=== PATIENT | male | born 1960 | race Caucasian/White ===

== ENCOUNTER → 2016-12-21 | Outpatient (CLI) | payer OTHER, MEDICARE ==
[~2016-12-21] MED LIST: ACET-1311 PO; CIPR1TAB11 PO; IBUP-1050 PO; LIDO5DIS10 TOP; LISI20TA3 PO; MULT-506 PO; ZNTT/150 PO
[2016-12-25 17:33] LABS: IGA SERUM 210 mg/dL (81-463); TIS TRANS IGA 1 U/mL (<4)
== END | disposition home or self-care (01) ==
LOC: C.LAB1850 11:50
PROVIDERS: ATTEND Registered Nurse
DX: R14.0 Abdominal distension (gaseous) (principal)

== ENCOUNTER → 2017-01-02 | Outpatient (CLI) | payer OTHER, MEDICARE ==
--- NOTE | 2017-01-02 10:53 | DIAGNOSTIC IMAGING REPORT ---
ABDOMINAL ULTRASOUND, RIGHT UPPER QUADRANT HISTORY: Pain. Nausea. K21.9 Acid reflux [id number] Abdominal [id number] Flatulence. COMPARISON: None. FINDINGS: Pancreas: The pancreas demonstrates a normal echotexture. Liver: Fatty infiltration 3.7 cm slightly complex cyst within the right hepatic lobe Gallbladder: No gallbladder wall thickening. No gallstones. CBD: 5 mm Right kidney: No hydronephrosis. IMPRESSION: 1. Fatty infiltration of liver. 2. 3.7 cm slightly complex hepatic cyst within the right hepatic lobe 3. Otherwise negative study Electronically signed by: Robbie Moctezuma M.D. 01/02/2017 10:52 AM Dictated Date/Time: 01/02/2017 10:49 AM
== END | disposition home or self-care (01) ==
LOC: C.ULTR 10:11
PROVIDERS: ATTEND Registered Nurse
DX: K21.9 Gastro-esophageal reflux disease without esophagitis (principal); R14.0 Abdominal distension (gaseous); R10.9 Unspecified abdominal pain; K76.0 Fatty (change of) liver, not elsewhere classified; K76.89 Other specified diseases of liver

== ENCOUNTER → 2017-01-05 | Outpatient (CLI) | payer OTHER, MEDICARE ==
[~2017-01-05] MED LIST changes: +OPTIRAY 320 IV PRN
--- NOTE | 2017-01-05 09:47 | DIAGNOSTIC IMAGING REPORT ---
Hepatic cyst LIVER (ABDOMEN) COMBO CLINICAL HISTORY: K76.89 Liver cyst hepatic cysts. Abnormal ultrasound. TECHNIQUE: Multiphase CT evaluation of the abdomen and liver COMPARISON STUDY: Abdominal ultrasound dated 01/02/2017 FINDINGS: 3.5 x 3.2 cm peripherally enhancing cystic lesion medial right hepatic lobe. Internal septation showing potential subtle nodularity. Remainder the liver is generally uniform mild fatty infiltration present. Diagnostic considerations include complex cyst, abscess, hydatid nodule, versus cystic neoplasm. [address] follow-up is suggested. Remainder the upper abdomen is unremarkable. Kidneys enhance uniformly. Gallbladder is negative for distention. Pancreas is unremarkable. Adrenal glands are unremarkable. There is no significant upper abdominal adenopathy. IMPRESSION: 1. 3.5 x 3.2 cm peripherally enhancing internally septated nodule medial right hepatic lobe. 2. Diagnostic considerations include hydatiform nodule/ cyst, complex cyst, abscess, versus potential necrotic neoplastic change. 3. Close CT follow-up is recommended at 3 months. Electronically signed by: Robbie Moctezuma M.D. 01/05/2017 9:45 AM Dictated Date/Time: 01/05/2017 9:35 AM
== END | disposition home or self-care (01) ==
LOC: C.CTS 09:18
PROVIDERS: ATTEND Registered Nurse
DX: K76.89 Other specified diseases of liver (principal)

== ENCOUNTER → 2017-01-08 | Outpatient (CLI) | payer OTHER, MEDICARE ==
[~2017-01-08] MED LIST changes: -OPTIRAY 320 IV PRN
[2017-01-09 08:15] LABS: AFP TUMOR MARKER SERUM 2.3 NG/ML (<6.1)
== END | disposition home or self-care (01) ==
LOC: C.LAB1850 08:47
PROVIDERS: ATTEND Registered Nurse
DX: K76.89 Other specified diseases of liver (principal)

== ENCOUNTER → 2017-01-29 | Day surgery (SDC) | payer OTHER, MEDICARE ==
[2017-01-15 10:58] VITALS: Ht 180.3 cm; Wt 115.9 kg
[~2017-01-29] VITALS: Ht 180.3 cm; Wt 115.9 kg
[~2017-01-29] MED LIST changes: +LIDOCAINE HCL 2% 2 ML VIAL (20MG/ML) ONE; +MIDAZOLAM HCL 1 MG/ML 2ML VIAL ONE; +ONDANSETRON INJ 2 MG/ML 2 ML VIAL ONE; +PROPOFOL IV EMULSION 10 MG/ML 20 ML VIAL IV ONE; +SODIUM CHLORIDE 0.9% 500ML 500 ML IV ONE
[2017-01-29 08:32] VITALS: TEMP 36.9
--- NOTE | 2017-01-29 08:40 | Endo History and Physical ---
History & Physical Date of Service: Jan 29, 2017. Chief Complaint: Cramping, Reflux Referring Physician: Hussein Yen History of Present Illness 56 yo CM who presents for EGD secondary to GERD. Past Medical History Arthritis, Hypertension Past Surgical History Hx Cardiac Surgery: No Hx Internal Defibrillator: No Hx Pacemaker: No Hx Abdominal Surgery: No Hx of Implantable Prosthesis: No Hx Post-Op Nausea and Vomiting: No Hx Cancer Surgery: No Hx Thoracic Surgery: No Hx Orthopedic: Yes (RT FOOT SURGERY X3 WITH HARDWARE) Hx Urinary Tract Surgery: No Family History Colon CA Social History Smoking Status: Former Smoker Hx Substance Use: No Hx Alcohol Use: Yes (OCCASIONAL) Allergies Coded Allergies: Penicillins (Verified Adverse Reaction, Mild, IRREGULAR HEARTBEAT, 01/15/17) Current Medications Reported Home Medications Medications Dose Route/Sig Max Daily Dose Days Date Category Zantac (Ranitidine HCl) 150 Mg Tab 150 Mg PO BID 01/15/17 Reported Tylenol (Acetaminophen) 325 Mg Tab 325-650 Mg PO Q4 PRN 10/04/15 Reported Advil (Ibuprofen) 200 Mg Tab 200-600 Mg PO Q4H PRN 10/04/15 Reported Multivitamin (Multivitamins) Tab 1 Tab PO QAM 10/04/15 Reported Lidoderm Patch 5% Patch (Lidocaine) 1 Patch Tdsy 1 Patch TOP DAILY 10/04/15 Reported Prinivil (Lisinopril) 20 Mg Tab 20 Mg PO QAM 01/02/11 Reported Vital Signs Weight (Kilograms): 115.91 Height (Feet): 5 Height (Inches): 11 Date Time Temp Pulse Resp B/P Pulse Ox O2 Delivery O2 Flow Rate FiO2 01/29/17 08:32 36.9 55 16 157/85 97 Room Air Physical Exam General Appearance: WD/WN, no apparent distress Respiratory/Chest: Auscultation: breath sounds normal Cardiovascular: Heart Auscultation: RRR Abdomen: Bowel Sounds: normal Inspection & Palpation: soft, non-distended, no tenderness, guarding & rebound Assessment and Plan Assessment: 56 yo CM who presents for EGD secondary to GERD. Plan: Proceed with EGD.
--- NOTE | 2017-01-29 09:30 | GI REPORT ---
Procedure Date: 01/29/2017 9:08 AM Procedure: Upper GI endoscopy Indications: Gastro-esophageal reflux disease Medicines: Monitored Anesthesia Care Complications: No immediate complications. Estimated Blood Loss: Estimated blood loss: none. Procedure: Pre-Anesthesia Assessment: - Prior to the procedure, a History and Physical was performed, and patient medications and allergies were reviewed. The patient's tolerance of previous anesthesia was also reviewed. The risks and benefits of the procedure and the sedation options and risks were discussed with the patient. All questions were answered, and informed consent was obtained. Prior Anticoagulants: The patient has taken no previous anticoagulant or antiplatelet agents. ASA Grade Assessment: II - A patient with mild systemic disease. After reviewing the risks and benefits, the patient was deemed in satisfactory condition to undergo the procedure. After obtaining informed consent, the endoscope was passed under direct vision. Throughout the procedure, the patient's blood pressure, pulse, and oxygen saturations were monitored continuously. The scope was introduced through the mouth, and advanced to the second part of duodenum. The upper GI endoscopy was accomplished without difficulty. The patient tolerated the procedure well. Findings: The esophagus was normal. Localized mild inflammation characterized by erythema was found in the gastric antrum. Biopsies were taken with a cold forceps for histology. The examined duodenum was normal. Impression: - Normal esophagus. - Gastritis. Biopsied. - Normal examined duodenum. Recommendation: - Resume previous diet. - Continue present medications. - Await pathology results. - Return to GI office as previously scheduled. Everardo Jacobs DO 01/29/2017 9:29:59 AM This report has been signed electronically. Note Initiated On: 01/29/2017 9:08 AM I attest to the content of the Intraoperative Record and orders documented therein, exceptions below
--- NOTE | 2017-01-29 09:32 | Discharge Instructions ---
Endoscopy Patient Instructions Date / Procedure(s) Performed Jan 29, 2017. EGD Allergy Information Coded Allergies: Penicillins (Verified Adverse Reaction, Mild, IRREGULAR HEARTBEAT, 01/15/17) Discharge Date / Findings Jan 29, 2017. Gastritis s/p biopsies Medication Instructions OK to resume all medications today as prescribed Reported Home Medications Medications Dose Route/Sig Max Daily Dose Days Date Category Zantac (Ranitidine HCl) 150 Mg Tab 150 Mg PO BID 01/15/17 Reported Tylenol (Acetaminophen) 325 Mg Tab 325-650 Mg PO Q4 PRN 10/04/15 Reported Advil (Ibuprofen) 200 Mg Tab 200-600 Mg PO Q4H PRN 10/04/15 Reported Multivitamin (Multivitamins) Tab 1 Tab PO QAM 10/04/15 Reported Lidoderm Patch 5% Patch (Lidocaine) 1 Patch Tdsy 1 Patch TOP DAILY 10/04/15 Reported Prinivil (Lisinopril) 20 Mg Tab 20 Mg PO QAM 01/02/11 Reported Provider Instructions Activity Restrictions - No exercising or heavy lifting for 24 hours. - Do not drink alcohol the day of the procedure. - Do not drive a car or operate machinery until the day after the procedure. - Do not make any important decisions or sign important papers in 24 hours after the procedure. Following Day: - Return to full activity which may include returning to work/school. Diet Start your diet with liquids and light foods (jello, soup, juice, toast). Then eat your usual diet if not nauseated. Treatment For Common After Affects For mild abdominal pain, bloating, or excessive gas: - Rest - Eat lightly - Lie on right side Follow-Up Information Follow-up with Hussein Yen as scheduled Anesthesia Information What You Should Know You have had a procedure that required some medicine to reduce anxiety and discomfort. This treatment is called moderate sedation. After receiving the treatment, you may be sleepy, but you will be able to breathe on your own. The effects of the treatment may last for several hours. Follow these instructions along with Activity/Diet recommendations noted above: * Do NOT do anything where dizziness or clumsiness would be dangerous. * Rest quietly at home today, then you can be up and about tomorrow. * Have a responsible person stay with you the rest of today. * You may have had an I.V. today. If so, you may take the dressing off later today. Recommendations Call your doctor if: * Trouble breathing * Continuous vomiting for more than 24 hours * Temperature above 101 degrees * Severe abdominal pain or bloating * Pain not relieved by pain medicine ordered * There is increased drainage or redness from any incision * A large amount of rectal bleeding greater than 2-3 tablespoons. (If you had a polyp/s removed or have hemorrhoids, a small amount of blood - from the rectum is to be expected.) * You have any unanswered questions or concerns. IN THE EVENT OF A SERIOUS EMERGENCY, GO TO THE NEAREST EMERGENCY ROOM Your discharge instructions were prepared by provider Everardo Jacobs. Patient Instructions Signature Page Kd Lockwood Patient (or Guardian) Signature/Date: I have read and understand the instructions given to me by my caregivers. Caregiver/RN/Doctor Signature/Date: The above-named patient and/or guardian has received patient instructions on this date. + Original Patient Signature Page (only) stays with chart. Please make copy for patient.
--- NOTE | 2017-01-29 09:42 | Anesthesiology Progress Note ---
Anesthesia Post Op Note Date & Time Jan 29, 2017 at 09:42 Vital Signs Pain Intensity: 0 Vital Signs Past 12 Hours Date Time Temp Pulse Resp B/P Pulse Ox O2 Delivery O2 Flow Rate FiO2 01/29/17 09:31 63 18 121/58 96 Room Air 01/29/17 08:32 36.9 55 16 157/85 97 Room Air Notes Mental Status: alert / awake / arousable, participated in evaluation Pt Amnestic to Procedure: Yes Nausea / Vomiting: adequately controlled Pain: adequately controlled Airway Patency, RR, SpO2: stable & adequate BP & HR: stable & adequate Hydration State: stable & adequate Anesthetic Complications: no major complications apparent
[2017-01-29 10:01] VITALS: BP 136/82; PULSE 52; O2SAT 98
--- NOTE | 2017-01-29 11:07 | Anesthesiology Progress Note ---
Anesthesia Progress Note Date of Service Jan 29, 2017. Progress Notes Pt was s/p EGD. Pt noted having a small chip on the medial aspect of his upper R front tooth. I spoke to the pt about it likely being caused from the bite block. I spoke with Dr. Jacobs about the incident. An event report was completed by the recovery nurse, a picture was taken of the tooth, and Hua Newton was contacted in regards to the matter. The pt was otherwise stable for discharge.
== END | disposition home or self-care (01) ==
LOC: C.GI 08:12
PROVIDERS: ATTEND Internal Medicine
DX: K29.70 Gastritis, unspecified, without bleeding (principal); K21.9 Gastro-esophageal reflux disease without esophagitis; M19.90 Unspecified osteoarthritis, unspecified site; I10 Essential (primary) hypertension; Z87.891 Personal history of nicotine dependence; Z88.0 Allergy status to penicillin; Z90.89 Acquired absence of other organs; E78.5 Hyperlipidemia, unspecified; G62.9 Polyneuropathy, unspecified; M54.5 Low back pain; Z86.19 Personal history of other infectious and parasitic diseases

== ENCOUNTER → 2017-02-07 | Day surgery (SDC) | payer OTHER, MEDICARE ==
[2017-01-15 11:06] VITALS: Ht 180.3 cm; Wt 115.9 kg
[~2017-02-07] VITALS: Ht 180.3 cm; Wt 115.9 kg
[~2017-02-07] MED LIST changes: +BUPIVACAINE 0.25% 2.5MG/ML PF 10 ML VIAL INFIL ONE; +IOPAMIDOL INJ 61% 15 ML VIAL ONE; +LIDOCAINE HCL 1% MPF 5 ML VIAL ONE; -LIDOCAINE HCL 2% 2 ML VIAL (20MG/ML) ONE; -MIDAZOLAM HCL 1 MG/ML 2ML VIAL ONE; -ONDANSETRON INJ 2 MG/ML 2 ML VIAL ONE; -PROPOFOL IV EMULSION 10 MG/ML 20 ML VIAL IV ONE; -SODIUM CHLORIDE 0.9% 500ML 500 ML IV ONE
--- NOTE | 2017-02-07 13:42 | History & Physical Bridge - SC ---
H&P Re-Evaluation Bridge Note: I have examined the patient, reviewed the History & Physical and in the interval since the performance of the History & Physical I have noted the following changes of clinical significance: No changes noted
--- NOTE | 2017-02-07 14:09 | Discharge Instructions ---
Discharge Instructions Date of Service Feb 07, 2017. Visit Reason for Visit: Sacroiliitis Discharge Discharge Diagnosis / Problem: Low back pain Discharge Goals Goal(s): Decrease discomfort, Improve function Activity Recommendations Activity Limitations: resume your previous activity Anesthesia . Post Anesthesia Instructions: If you have had General Anesthesia or IV Sedation: * Do not drive today. * Resume driving when surgeon permits. * Do not make important decisions or sign legal documents today. * Call surgeon for: 1. Temperature elevations greater than 101 degrees F. 2. Uncontrollable pain. 3. Excessive bleeding. 4. Persistent nausea and vomiting. 5. Medication intolerance (nausea, vomiting or rash). * For nausea and vomiting use only clear liquids such as: tea, soda, bouillon until nausea subsides, then gradually increase diet as tolerated. * If you have any concerns or questions, call your surgeon's office. If physician is unavailable and it is an emergency, call 911 or go to the nearest emergency room. . Diet Recommendations Recommended Home Diet: resume previous diet Procedures Procedures Performed: RIGHT SACROILIAC JOINT INJECTION Pending Studies Studies pending at discharge: no Medical Emergencies . Who to Call and When: Medical Emergencies: If at any time you feel your situation is an emergency, please call 911 immediately. . Non-Emergent Contact Non-Emergency issues call your: Specialist . . "Provider Documentation" section prepared by Johnny Jordan.
[2017-02-07 14:14] VITALS: BP 152/91; PULSE 57; TEMP 36.7; O2SAT 98
--- NOTE | 2017-02-07 15:48 | OPERATIVE REPORT ---
DATE OF OPERATION: 02/07/2017 PREOPERATIVE DIAGNOSIS: Right sacroiliitis. POSTOPERATIVE DIAGNOSIS: Same. PROCEDURE: Right sacroiliac joint injection under fluoroscopic guidance. INDICATIONS: The patient is a 56-year-old white male who presents today for an SI joint injection. He had problems with the back when he woke up postoperatively after repair of the ankle area, question was whether he was positioned in a certain position that irritated the SI joint. His examination is consistent with provocative maneuvers of SI pathology and he presents today for an injection to provide him with relief. PHYSICAL EXAMINATION: Pleasant male seated comfortably in no apparent distress. He has tenderness to palpation of the SI joint. It is worse with moving from a flexed to an extended position. He also has a positive Bridget maneuver on the right and positive sacral distraction and compression maneuvers. CONSENT: Verbal and written consent was obtained from the patient. Risks and benefits were reviewed. Risks include, but are not limited to abscess and allergic reaction. The patient wishes to proceed. DESCRIPTION OF PROCEDURE: The patient was taken back to the special procedures room of the [facility], where he was maintained in a prone position. Backside was cleansed with Betadine x3 and a dry sterile dressing was applied. Fluoroscope was used to identify the right SI joint and the overlying skin was anesthetized with 2.5 mL of lidocaine 1% with a 25-gauge 1.5-inch needle. A 25-gauge 3.5-inch spinal needle was then directed under fluoroscopic guidance into the joint. He then underwent injection of 0.25 mL of Isovue 300 contrast, which demonstrated intraarticular uptake. He then underwent injection after negative aspiration of 40 mg of Depo-Medrol and 1.5 mL of bupivacaine 0.25%. Injection was well tolerated. DISPOSITION: 1. The patient is taken out into the discharge recovery area, where he will be discharged home once discharge criteria have been met. 2. Follow up in the [facility] office in 2-4 weeks. I attest to the content of the Intraoperative Record and any orders documented therein. Any exceptio ns are noted below.
== END | disposition home or self-care (01) ==
LOC: X.SURG 12:27
PROVIDERS: ATTEND Physical Medicine & Rehabilitation
DX: M46.1 Sacroiliitis, not elsewhere classified (principal)

== ENCOUNTER → 2017-02-14 | Outpatient (CLI) | payer OTHER, MEDICARE ==
[~2017-02-14] MED LIST changes: -ACET-1311 PO; -BUPIVACAINE 0.25% 2.5MG/ML PF 10 ML VIAL INFIL ONE; +GADOXETATE DISODIUM (NON-WT BASED PROCEDURE) IV PRN; -IOPAMIDOL INJ 61% 15 ML VIAL ONE; -LIDOCAINE HCL 1% MPF 5 ML VIAL ONE
--- NOTE | 2017-02-14 17:57 | DIAGNOSTIC IMAGING REPORT ---
ORBIT RADIOGRAPHS 3 VIEWS HISTORY: pre-MRI screening. COMPARISON: Orbit radiographs April 08, 2009. FINDINGS: There are no radiopaque foreign bodies identified within the orbits. IMPRESSION: No radiopaque foreign bodies identified within the orbits. Electronically signed by: Ryan Bello M.D. 02/14/2017 5:56 PM Dictated Date/Time: 02/14/2017 5:55 PM
--- NOTE | 2017-02-15 10:50 | DIAGNOSTIC IMAGING REPORT ---
MRI OF THE ABDOMEN WITH AND WITHOUT CONTRAST LIVER PROTOCOL CLINICAL HISTORY: Liver cyst. Abdominal pain. COMPARISON STUDY: Right upper quadrant ultrasound January 02, [address] of the abdomen January 05, 2017. TECHNIQUE: Utilizing a 1.5 Lalitha magnet and dedicated coil, multiplanar, multiecho imaging of the abdomen was performed pre and postcontrast administration. Injection of 10 cc of Eovist IV was uneventful. Post contrast imaging was performed utilizing dynamic enhancement with 20 minute delayed phase images. FINDINGS: The liver morphology is normal. Note is made of a complex cystic right hepatic lobe lesion that measures 3.6 x 2.9 x 3.2 cm. This is similar in size to exam of January 05, 2017. This contains several thickened septations. The wall of this lesion is slightly irregular. There is minimal enhancement of the wall and the internal septations. No additional hepatic lesions are present. There is no biliary ductal dilatation. The spleen, adrenal glands, kidneys and pancreas are normal. There is no abdominal lymphadenopathy or ascites. Visualized skeletal structures are unremarkable. Note is made of fatty infiltration of the liver. IMPRESSION: 1. No significant change in the complex 3.6 cm cystic right hepatic lobe lesion since CT of January 05, 2017. Differential considerations include a complex cyst, hydatid cyst and biliary cystadenoma. An abscess is considered less likely given stability. This lesion is likely benign but remains indeterminate and an MRI in 6 months is recommended to ensure stability. 2. Fatty infiltration of the liver. Electronically signed by: Ryan Bello M.D. 02/15/2017 10:48 AM Dictated Date/Time: 02/14/2017 7:26 PM
== END | disposition home or self-care (01) ==
LOC: C.RAD 17:21
PROVIDERS: ATTEND Registered Nurse
DX: K76.89 Other specified diseases of liver (principal); K76.0 Fatty (change of) liver, not elsewhere classified

== ENCOUNTER → 2017-02-22 | Outpatient (CLI) | payer OTHER, MEDICARE ==
[~2017-02-22] MED LIST changes: -GADOXETATE DISODIUM (NON-WT BASED PROCEDURE) IV PRN
[2017-03-02 13:15] LABS: CRYPTOSPORIDIUM AG TC 37213 NOT DETECTED (NOT DETECTED); ISOSPORA+CYCLOSPORA NOT DETECTED; O&P GIARDIA AG NOT DETECTED (NOT DETECTED); O&P SOURCE OTHER
== END ==
LOC: C.LAB1850 09:07
PROVIDERS: ATTEND Registered Nurse
DX: R10.9 Unspecified abdominal pain (principal); R14.0 Abdominal distension (gaseous)

== ENCOUNTER → 2017-07-25 | Outpatient (CLI) | payer OTHER, MEDICARE | END | disposition home or self-care (01) | LOC: C.RDSM 08:38 | PROVIDERS: ATTEND Orthopaedic Surgery | DX: M25.521 Pain in right elbow (principal) ==

== ENCOUNTER → 2017-07-27 | Outpatient (CLI) | payer OTHER, MEDICARE ==
--- NOTE | 2017-07-27 11:03 | DIAGNOSTIC IMAGING REPORT ---
RIGHT ELBOW MRI HISTORY: RIGHT ELBOW PAIN M25.521 Right TECHNIQUE: Multiplanar multisequence MRI of the right elbow was performed without the use of intravenous contrast. COMPARISON STUDY: Right elbow 07/25/2017. FINDINGS: There is mild edema both within and surrounding the distal biceps tendon. There is also mild thickening of the distal biceps tendon. This is consistent with a tendinopathy/low-grade partial tear. No evidence for full-thickness tear of the biceps tendon. No fracture or dislocation within the elbow. Normal marrow signal intensity seen throughout the visualized osseous structures. The triceps tendon is intact. No elbow effusion. The ulnar nerve is within normal limits. The radial and ulnar collateral ligaments are intact. The proximal common flexor and common extensor tendon are within normal limits. IMPRESSION: Mild edema both within and surrounding the distal biceps tendon consistent with a tendinopathy/low-grade partial tear. Electronically signed by: Yony Bañuelos M.D. 07/27/2017 11:02 AM Dictated Date/Time: 07/27/2017 10:57 AM
== END | disposition home or self-care (01) ==
LOC: C.MRI 09:51
PROVIDERS: ATTEND Orthopaedic Surgery
DX: M25.521 Pain in right elbow (principal)

== ENCOUNTER → 2017-08-20 | Outpatient (CLI) | payer OTHER, MEDICARE ==
[~2017-08-20] MED LIST changes: +GADOXETATE DISODIUM (NON-WT BASED PROCEDURE) IV PRN
--- NOTE | 2017-08-20 10:14 | DIAGNOSTIC IMAGING REPORT ---
MRI OF THE ABDOMEN COMBO CLINICAL HISTORY: Follow-up cystic liver lesion. COMPARISON STUDY: Abdominal MRI dated 02/14/2017. Abdominal CT dated 01/05/2017. TECHNIQUE: MRI of the abdomen is performed transverse T1 and T2-weighted sequences in the axial and coronal planes. Contrast enhanced sequences were acquired following the IV administration of 10 cc of view of Eovist. MRCP images were acquired. Subtraction imaging was utilized. FINDINGS: Lower chest: No pleural effusion is identified. The heart is normal in size. Liver: The liver is normal in size, contour, and signal intensity. Again seen is a predominantly cystic lesion within the inferior right lobe of the liver. This has increased in size from 02/14/2017, now measuring 3.9 x 3.5 x 4.5 cm (previously measured 3.6 x 2.9 x 3.2 cm). This contains thin internal septations. There is an increasingly prominent focus of enhancing nodular soft tissue along the inferior margin. This is best seen on coronal postcontrast image #47 and measures 1.9 cm. This lesion also demonstrates a thin rind/round of peripheral enhancement. No restricted diffusion is seen within this lesion. No additional hepatic lesions are seen. No intrahepatic biliary ductal dilatation is seen. The hepatic veins and portal veins are patent. Gallbladder: The gallbladder is normal in appearance. No gallstones are seen. The common bile duct is normal in caliber measuring up to 4 mm. There is no evidence of choledocholithiasis. Spleen: Normal in size and signal intensity. Pancreas: Pancreas is normal as visualized. The pancreatic duct is normal in appearance. Adrenal glands: Unremarkable. Kidneys: The kidneys are normal in size and without hydronephrosis. The kidneys enhance and excrete symmetrically. Abdominal aorta: Normal in course and caliber. Bowel: Visualized portions of the small bowel and colon show no evidence of obstruction. Peritoneum: There is no abdominal ascites. Lymphadenopathy: None. Skeletal structures: Visualized skeletal structures times are normal marrow signal intensity. IMPRESSION: 1. There has been an increase in size of the complex cystic lesion in the right hepatic lobe as detailed above when compared to 02/14/2017. This demonstrates an enhancing nodular component, and although pathologically indeterminant the top consideration is a biliary cystadenoma/cystadenocarcinoma. Differential considerations include hydatid disease or much less likely abscess. Based on the increase in size surgical consultation is advised. 2. No additional hepatic lesion is seen. Electronically signed by: Anthony Lemus M.D. 08/20/2017 10:12 AM Dictated Date/Time: 08/20/2017 9:54 AM
== END | disposition home or self-care (01) ==
LOC: C.MRI 08:27
PROVIDERS: ATTEND Registered Nurse
DX: K76.89 Other specified diseases of liver (principal)

== ENCOUNTER → 2017-08-21 | Outpatient (CLI) | payer OTHER, MEDICARE ==
[~2017-08-21] MED LIST changes: -GADOXETATE DISODIUM (NON-WT BASED PROCEDURE) IV PRN
[2017-08-21 09:37] LABS: BASO % 0.6 %; BASO ABS # 0.04 K/uL (0-0.2); COMPLETE YES; HEMATOCRIT 45.2 % (42-52); IG% 0.3 %; LYMPH % 29.2 %; LYMPH ABS # 1.96 K/uL (1.2-3.4); MEAN CELL VOLUME 93.8 fL (80-100); MEAN CORPUSCULAR HEMOGLOBIN 32.8 pg (25-34); MEAN PLATELET VOLUME 10.4 fL (7.4-10.4); MONO % 11.5 %; NEUT % 55.4 %; PLATELET COUNT 257 K/uL (130-400); RED BLOOD COUNT 4.82 M/uL (4.7-6.1); WHITE BLOOD COUNT 6.72 K/uL (4.8-10.8)
[2017-08-21 09:51] LABS: ALT/SGPT 20 U/L (12-78); AST/SGOT 17 U/L (15-37); BLOOD UREA NITROGEN 11 mg/dl (7-18); CALCIUM 9.1 mg/dl (8.5-10.1); CARBON DIOXIDE 29 mmol/L (21-32); CHLORIDE 106 mmol/L (98-107); CREATININE 0.81 mg/dl (0.60-1.40); GLUCOSE 88 mg/dl (70-99); POTASSIUM 4.2 mmol/L (3.5-5.1); SODIUM 139 mmol/L (136-145)
[2017-08-21 09:54] LABS: ALB/GLOB RATIO 1.3 (0.9-2); ALKALINE PHOSPHATASE 49 U/L (45-117)
== END | disposition home or self-care (01) ==
LOC: C.LAB1850 07:47
PROVIDERS: ATTEND Physician Assistant
DX: K76.89 Other specified diseases of liver (principal)

== ENCOUNTER → 2017-09-26 | Outpatient (CLI) | payer OTHER, MEDICARE ==
[2017-09-26 10:11] LABS: BASO ABS # 0.06 K/uL (0-0.2); COMPLETE YES; EOS % 3.4 %; HEMATOCRIT 44.1 % (42-52); IG% 0.3 %; LYMPH % 27.4 %; LYMPH ABS # 1.61 K/uL (1.2-3.4); MEAN CELL VOLUME 92.3 fL (80-100); MEAN CORPUSCULAR HEMOGLOBIN 33.7 pg (25-34); MEAN CORPUSCULAR HGB CONC 36.5 g/dl (32-36); MEAN PLATELET VOLUME 9.8 fL (7.4-10.4); MONO % 9.5 %; NEUT % 58.4 %; PLATELET COUNT 248 K/uL (130-400); RED BLOOD COUNT 4.78 M/uL (4.7-6.1); WHITE BLOOD COUNT 5.88 K/uL (4.8-10.8)
[2017-09-26 10:22] LABS: PROTHROMBIN TIME (PATIENT) 10.2 SECONDS (9.0-12.0)
--- NOTE | 2017-09-26 10:24 | DIAGNOSTIC IMAGING REPORT ---
CHEST 2 VIEWS ROUTINE HISTORY: LIVER CYST COMPARISON: Chest 09/08/2016. FINDINGS: The lungs are clear. Cardiac silhouette is normal in size. No pleural effusions. No pneumothorax. IMPRESSION: No acute process. Electronically signed by: Yony Bañuelos M.D. 09/26/2017 10:23 AM Dictated Date/Time: 09/26/2017 10:21 AM
[2017-09-26 10:48] LABS: ALT/SGPT 25 U/L (12-78); AST/SGOT 15 U/L (15-37); BLOOD UREA NITROGEN 16 mg/dl (7-18); BUN/CREATININE RATIO 20.9 (10-20); CALCIUM 9.1 mg/dl (8.5-10.1); CARBON DIOXIDE 26 mmol/L (21-32); CHLORIDE 104 mmol/L (98-107); CREATININE 0.75 mg/dl (0.60-1.40); GLUCOSE 86 mg/dl (70-99); MAGNESIUM 2.2 mg/dl (1.8-2.4); POTASSIUM 4.3 mmol/L (3.5-5.1); SODIUM 138 mmol/L (136-145)
[2017-09-26 10:51] LABS: ALB/GLOB RATIO 1.3 (0.9-2); ALKALINE PHOSPHATASE 49 U/L (45-117); PHOSPHORUS 2.6 mg/dl (2.5-4.9)
== END | disposition home or self-care (01) ==
LOC: C.LAB 09:09
PROVIDERS: ATTEND Specialist
DX: K76.89 Other specified diseases of liver (principal)

== ENCOUNTER 2017-11-04 13:56 | Emergency (ER) | payer OTHER, MEDICARE ==
[~2017-11-04] VITALS: Ht 180.3 cm; Wt 100.3 kg
[2017-11-04 14:08] VITALS: TEMP 37.7; Ht 180.3 cm; Wt 100.3 kg
[2017-11-04] MEDS ORDERED: CIPROFLOXACIN 500 MG TAB PO STA (15:12)
[2017-11-04] MEDS ORDERED: CIPR-255 PO (15:16)
--- NOTE | 2017-11-04 15:17 | EMERGENCY ROOM VISIT NOTE ---
History Report prepared by Renetta: Reggie Salcido Under the Supervision of: Dr. Kendall Pedraza D.O. First contact with patient: 14:30 Chief Complaint: WOUND INFECTION Stated Complaint: FEAVER,DISCHARGE IN OPEN WOUND History of Present Illness The patient is a 57 year old male who presents to the Emergency Room with complaints of a fever that began today. He reports his fever was at 101 F and experienced sweats. The patient states he was seen on 10/16/2017, by Dr. Palta at [facility] for a confined cancerous liver cyst resection. The patient states he developed an infection 2 days ago and had a watery mass removed. His home health nurse removed the packing from his open wound today and after calling Dr. Plata's nurse, he was told to come the ED. Of note, the patient is on Bacterin. 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 Review of Systems See HPI for pertinent positives & negatives. A total of 10 systems reviewed and were otherwise negative. Social History Smoking Status: Never Smoker Current/Historical Medications Scheduled Ciprofloxacin Hcl (Cipro), 500 MG PO BID Ciprofloxacin Tab (Cipro), 1 TAB PO BID Allergies Coded Allergies: Penicillins (Verified Adverse Reaction, Mild, IRREGULAR HEARTBEAT, 02/07/17 ) Physical Exam Vital Signs Date Time Temp Pulse Resp B/P (MAP) Pulse Ox O2 Delivery O2 Flow Rate FiO2 11/04/17 15:30 78 20 131/79 97 11/04/17 14:08 37.7 100 20 130/84 99 Room Air Physical Exam CONSTITUTIONAL/VITAL SIGNS: Reviewed / noted above. GENERAL: Non-toxic in appearance. INTEGUMENTARY: Warm, dry, and [place]. HEAD: Normocephalic. EYES: without scleral icterus or trauma. ENT/OROPHARYNX: clear and moist. LYMPHADENOPATHY/NECK: Is supple without lymphadenopathy or meningismus. RESPIRATORY: Lungs clear and equal. CARDIOVASCULAR: Regular rate and rhythm. GI/ABDOMEN: Soft and nontender. No organomegaly or pulsatile mass. No rebound or guarding. Normal bowel sounds. Large abdominal wound in RUQ with minimal erythema along wound edge. Depth of the wound was visualized by removing packing in place. There was as mall amount fo purulent drainage on deepest portion of the packing and the medial aspect of the wound. Tissue was well perfused. The inferior medial portion of the deep wound reveals some brown to greyish tissue in the area of the purulent drainage. EXTREMITIES: Warm and well perfused. BACK: No CVA tenderness. NEUROLOGICAL: Intact without focal deficits. PSYCHIATRIC: normal affect. MUSCULOSKELETAL: Normally developed with good muscle tone. Medical Decision & Procedures Laboratory Results Laboratory results as stated above per my review. Medications Administered Medications (Trade) Dose Ordered Sig/Vadim Route Start Time Stop Time Status Last Admin Dose Admin Ciprofloxacin (Cipro Tab) 500 mg NOW STAT PO 11/04/17 15:12 11/04/17 15:13 DC 11/04/17 15:33 500 MG ED Course 1428: Previous medical records were reviewed. The patient was evaluated in room C1. A complete history and physical examination was performed. 1502: Discussed the patient's case with Dr. Plata. He suggested the patient be switched to Cipro and to continue with would dressing changes. The patient will be evaluated for further treatment and disposition. 1515: Cipro 500mg PO. 1530: On reevaluation, the patient is doing well. I discussed the results and findings with the patient. He verbalized agreement of the treatment plan. The patient was discharged home. Medical Decision Differential includes viral illness, influenza, streptococcal pharyngitis, meningitis, pneumonia, sinusitis, UTI, pyelonephritis, otitis media. This is a 57-year-old male who presents to the ED with a chief complaint of fever. The patient had partial liver resection on October 16. He had a subsequent infection that required a second surgery and debridement this past week. He has been placed on Bactrim. He is allergic to penicillin. The patient was discharged from [facility] and [facility] 2 days ago. He has no other complaints. Physical exam was relatively unremarkable with exception of the surgical wound. There was some evidence of a small amount of necrotic tissue in the depth of the wound inferiorly and medial where there also was noted some purulent drainage from the wound packing. The wound otherwise appears well perfused and pink. There was only a small amount of. Discharge. The wound was repacked. I spoke with Dr. Coppola, surgeon from [facility]. He recommended switching the patient to Cipro. The patient has plans to have a wound VAC placed on Sunday. The patient is felt to be stable for discharge. Medication Reconcilliation Current Medication List: was personally reviewed by me Blood Pressure Screening Patient's blood pressure: Normal blood pressure Consults Time Called: 1502 Consulting Physician: Dr. Plata - [facility] Returned Call: 1503 Discussed the patient's case with Dr. Coppola. He suggested the patient be switched to Cipro and to continue with would dressing changes. The patient will be evaluated for further treatment and disposition. Impression Primary Impression: Wound infection after surgery Scribe Attestation The scribe's documentation has been prepared under my direction and personally reviewed by me in its entirety. I confirm that the note above accurately reflects all work, treatment, procedures, and medical decision making performed by me. Departure Information Dispostion Home / Self-Care Prescriptions Ciprofloxacin Hcl (CIPRO) 500 Mg Tab 500 MG PO BID, #20 TAB Prov: Kendall Pedraza D.O. 11/04/17 Referrals No Doctor, Assigned (PCP) Patient Instructions My [facility] Additional Instructions Cipro as prescribed Discontinue Bactrim. Follow-up as scheduled. Return to the emergency department for worsening or new symptoms or any concerns. You have been examined and treated today on an emergency basis only. This is not a substitute for, or an effort to provide, complete comprehensive medical care. It is impossible to recognize and treat all injuries or illnesses in a single emergency department visit. It is therefore important that you follow up closely with your doctor. Call as soon as possible for an appointment.
[2017-11-04 15:30] VITALS: BP 131/79; PULSE 78; O2SAT 97
== END 2017-11-04 15:30 | disposition home or self-care (01) ==
LOC: C.EDB 13:57 → C.EDC 15:30
DX: T81.4XXA Infection following a procedure, initial encounter (principal); Y84.8 Other medical procedures as the cause of abnormal reaction of the patient, or of later complication, without mention of misadventure at the time of the procedure

== ENCOUNTER 2017-11-16 15:55 | Emergency (ER) | payer OTHER, MEDICARE ==
[~2017-11-16] VITALS: Ht 180.3 cm; Wt 99.7 kg
[~2017-11-16 15:55] MED LIST changes: +CIPR-255 PO; -IBUP-1050 PO; -LIDO5DIS10 TOP; -LISI20TA3 PO; -MULT-506 PO; -ZNTT/150 PO
[2017-11-16] MEDS ORDERED: SODIUM CHLORIDE 0.9% 1000ML 2,000 ML IV STA (16:00)
[2017-11-16] MEDS ORDERED: SODIUM CHLORIDE 0.9% 1000ML 1,000 ML IV STA ×2 (16:00→19:19)
[2017-11-16] MEDS ORDERED: ONDANSETRON INJ 2 MG/ML 2 ML VIAL IV STA ×2 (16:00→20:34)
[2017-11-16] MEDS ORDERED: FENTANYL CITRATE INJ 50 MCG/1 ML 2 ML VIAL IV STA ×3 (16:07→23:21)
[2017-11-16] MEDS ORDERED: ACETAMINOPHEN IV 100 ML IV STA (16:07)
--- NOTE | 2017-11-16 16:07 | EMERGENCY ROOM VISIT NOTE ---
History Report prepared by Renetta: Marina Thibodeaux Under the Supervision of: Dr. Titus Salinas M.D. First contact with patient: 15:57 Stated Complaint: NAUSEA, VOMITING, DIARRHEA History of Present Illness The patient is a 57 year old male who presents to the Emergency Room with complaints of persistent nausea, vomiting, and diarrhea that began last night. The patient states he has been experiencing lower back pain, shivering, chills, and intermittent fevers. He notes he has had a recent loss of appetite. The patient states that he had a partial liver resection on 10/16/2017, followed by an infection on 10/29/2015 which led to a second surgical procedure to clean the infected area. The patient was seen in the Emergency Department on 11/04/17 for a possible infection and a wound VAC was placed on 11/06. He states that after his surgeries, he has been having a nurse come and check his incision and discharge in his VAC, noting that 2 days ago the nurse noted a strong smell and today she suggested he come to the Emergency Department for further evaluation for a possible infection. Source of History: patient Onset: last night Position: other (global) Quality: other (nausea, vomiting, diarrhea) Timing: other (persistent) Associated Symptoms: + fevers (intermittent), + chills, + back pain Review of Systems See HPI for pertinent positives and negatives. A total of ten systems were reviewed and were otherwise negative. Past Medical & Surgical Medical Problems: (1) No Known Active Medical Problems Family History Patient reports no known family medical history. Social History Smoking Status: Never Smoker Smokeless Tobacco Use: No Alcohol Use: none Drug Use: none Current/Historical Medications Scheduled Lisinopril (Lisinopril), 20 MG PO QAM Scheduled PRN Oxycodone HCl (Oxycodone HCl), 5 MG PO Q6 PRN for Pain Allergies Coded Allergies: Penicillins (Verified Adverse Reaction, Mild, IRREGULAR HEARTBEAT, 11/16/17) Physical Exam Vital Signs Date Time Temp Pulse Resp B/P (MAP) Pulse Ox O2 Delivery O2 Flow Rate FiO2 11/16/17 22:00 77 20 105/70 96 Room Air 11/16/17 21:00 81 20 105/67 96 Room Air 11/16/17 20:00 85 20 106/61 96 Room Air 11/16/17 19:00 83 20 104/65 98 Room Air 11/16/17 17:56 90 20 111/65 96 Room Air 11/16/17 17:00 96 16 121/77 95 Room Air 11/16/17 16:15 112 11/16/17 16:15 37.0 122 20 107/86 96 Room Air Physical Exam GENERAL: Awake, alert, fatigued, uncomfortable and ill-appearing, in no distress HENT: Dry cracked mucous membranes. Normocephalic, atraumatic. Oropharynx unremarkable. EYES: Normal conjunctiva. Sclera non-icteric. NECK: Supple. No nuchal rigidity. FROM. No JVD. RESPIRATORY: Clear to auscultation. CARDIAC: Regular rate, normal rhythm. Extremities warm and well perfused. Pulses equal. ABDOMEN: Mild abdominal tenderness around right wound VAC sight, no erythema or warmth. Serosanguineous around wound and appears viscous. Soft, non-distended. No tenderness to palpation. No rebound or guarding. No masses. RECTAL: Deferred. MUSCULOSKELETAL: Chest examination reveals no tenderness. The back is symmetrical on inspection without obvious abnormality. There is no CVA tenderness to palpation. No joint edema. LOWER EXTREMITIES: Calves are equal size bilaterally and non-tender. No edema. No discoloration. NEURO: Normal sensorium. No sensory or motor deficits noted. SKIN: No rash or jaundice noted. Medical Decision & Procedures ER Provider Diagnostic Interpretation: Radiology results as stated below per my review and radiologist interpretation: CHEST ONE VIEW PORTABLE CLINICAL HISTORY: Abdominal pain and vomiting. COMPARISON STUDY: Chest radiograph September 26, 2017. FINDINGS: Lung volumes are normal. No pneumothorax or pleural effusion is noted. There is no evidence of pleural edema. No consolidation to suggest pneumonia. Cardiomediastinal silhouette is normal. IMPRESSION: No acute cardiopulmonary findings. Electronically signed by: Ryan Bello M.D. 11/16/2017 4:31 PM Dictated Date/Time: 11/16/2017 4:30 PM Laboratory Results 11/16/17 16:40 Red Blood Count 4.63, Mean Corpuscular Volume 91.6, Mean Corpuscular Hemoglobin 32.4, Mean Corpuscular Hemoglobin Concent 35.4, Mean Platelet Volume 9.3, Neutrophils (%) (Auto) 89.9, Lymphocytes (%) (Auto) 3.8, Monocytes (%) (Auto) 5.7, Eosinophils (%) (Auto) 0.0, Basophils (%) (Auto) 0.3, Neutrophils # (Auto) 9.41, Lymphocytes # (Auto) 0.40, Monocytes # (Auto) 0.60, Eosinophils # (Auto) 0.00, Basophils # (Auto) 0.03 11/16/17 16:40 Test 11/16/17 16:40 White Blood Count 10.47 K/uL (4.8-10.8) Red Blood Count 4.63 M/uL (4.7-6.1) Hemoglobin 15.0 g/dL (14.0-18.0) Hematocrit 42.4 % (42-52) Mean Corpuscular Volume 91.6 fL (80-100) Mean Corpuscular Hemoglobin 32.4 pg (25-34) Mean Corpuscular Hemoglobin Concent 35.4 g/dl (32-36) Platelet Count 318 K/uL (130-400) Mean Platelet Volume 9.3 fL (7.4-10.4) Neutrophils (%) (Auto) 89.9 % Lymphocytes (%) (Auto) 3.8 % Monocytes (%) (Auto) 5.7 % Eosinophils (%) (Auto) 0.0 % Basophils (%) (Auto) 0.3 % Neutrophils # (Auto) 9.41 K/uL (1.4-6.5) Lymphocytes # (Auto) 0.40 K/uL (1.2-3.4) Monocytes # (Auto) 0.60 K/uL (0.11-0.59) Eosinophils # (Auto) 0.00 K/uL (0-0.5) Basophils # (Auto) 0.03 K/uL (0-0.2) RDW Standard Deviation 44.2 fL (36.4-46.3) RDW Coefficient of Variation 13.2 % (11.5-14.5) Immature Granulocyte % (Auto) 0.3 % Immature Granulocyte # (Auto) 0.03 K/uL (0.00-0.02) Anion Gap 9.0 mmol/L (3-11) Est Creatinine Clear Calc Drug Dose 112.8 ml/min Estimated GFR () 111.6 Estimated GFR (Non- 96.3 BUN/Creatinine Ratio 18.8 (10-20) Lactic Acid Level 1.8 mmol/L (0.4-2.0) Calcium Level 9.2 mg/dl (8.5-10.1) Total Bilirubin 1.0 mg/dl (0.2-1) Direct Bilirubin 0.2 mg/dl (0-0.2) Aspartate Amino Transf (AST/SGOT) 20 U/L (15-37) Alanine Aminotransferase (ALT/SGPT) 23 U/L (12-78) Alkaline Phosphatase 72 U/L (45-117) Total Protein 7.8 gm/dl (6.4-8.2) Albumin 3.9 gm/dl (3.4-5.0) Lipase 151 U/L (73-393) Influenza Type A (RT-PCR) Neg for Influ A (NEG) Influenza Type A Antigen Neg for Influ A (NEG) Influenza Type B Antigen Neg for Influ B (NEG) Influenza Type B (RT-PCR) Neg for Influ B (NEG) Laboratory results reviewed by me Medications Administered Medications (Trade) Dose Ordered Sig/Vadim Route Start Time Stop Time Status Last Admin Dose Admin Sodium Chloride 2,000 ml @ 999 mls/hr Q2H1M STAT IV 11/16/17 16:00 11/16/17 18:00 DC 11/16/17 16:39 999 MLS/HR Ondansetron HCl (Zofran Inj) 4 mg NOW STAT IV 11/16/17 16:00 11/16/17 16:07 DC 11/16/17 16:39 4 MG Fentanyl Citrate (Fentanyl Inj) 50 mcg NOW STAT IV 11/16/17 16:07 11/16/17 16:09 DC 11/16/17 16:39 50 MCG Acetaminophen 100 ml @ 400 mls/hr NOW STAT IV 11/16/17 16:07 11/16/17 16:21 DC 11/16/17 16:39 400 MLS/HR Vancomycin HCl 2000 mg/Sodium Chloride 540 ml @ 200 mls/hr ONE STAT IV 11/16/17 18:18 11/16/17 20:59 DC 11/16/17 20:37 200 MLS/HR Cefepime HCl 2000 mg/Dextrose 112.5 ml @ 200 mls/hr NOW STAT IV 11/16/17 18:57 11/16/17 19:30 DC 11/16/17 20:22 200 MLS/HR Metronidazole (Flagyl / Nss) 500 mg NOW STAT IV 11/16/17 18:57 11/16/17 18:59 DC 11/16/17 19:21 500 MG Sodium Chloride 1,000 ml @ 125 mls/hr Q8H STAT IV 11/16/17 19:19 11/17/17 03:18 11/16/17 20:45 125 MLS/HR Fentanyl Citrate (Fentanyl Inj) 50 mcg NOW STAT IV 11/16/17 20:29 11/16/17 20:30 DC 11/16/17 20:36 50 MCG Ondansetron HCl (Zofran Inj) 4 mg NOW STAT IV 11/16/17 20:34 11/16/17 20:35 DC 11/16/17 20:36 4 MG ECG Indication: nausea, vomiting, other (diarrhea) Rate (beats per minute): 101 Rhythm: sinus tachycardia Findings: other (normal axis) ED Course 1559: The patient was evaluated in room C7. A complete history and physical exam was performed. 1845: I d/w Dr. Plata, patient's [facility] surgeon, who accepts patient for transfer to [facility]. Medical Decision I reviewed the patient's past medical history, medications, and the nursing notes as described above. The patient's presentation and history were concerning for abscess, cellulitis, sepsis, influenza, pneumonia, and UTI. The patient is a 57-year-old gentleman with a past medical history of a recent liver cyst resection on 10/16/2017, by Dr. Plata at [facility] with subsequent complications of infection status post debridement on the , recurrent infection and wound VAC placed on the with a course of Cipro which she completed 2 days ago and now presents emergency Department with generalized fatigue/malaise, feverishness and chills, nausea and diarrhea per history of present illness. On arrival the patient is uncomfortable, ill appearing but in no acute distress, afebrile, heart rate in the 120s, but pressure stable. On exam the patient has mild tenderness surrounding his surgical drain site however no erythema or discharge. The wound VAC discharge is serosanguineous but does appear thickened. Labs unremarkable including WBC and lactate within normal limits. CT scan demonstrates a peripheral right hepatic lobe complex collection measuring 8 x 6 x 2 cm that could be c/w abscess. Given the patient' s infectious symptoms abscess is high on differential. Case d/w Dr. Plata, patient's surgeon at [facility], who says the patient did have a post-op fluid collection that was believed to be a seroma, however given patient's infectious sx agrees that transfer for drainage is appropriate. Will treat with Vanc, Cefepime, Flagyl. Of note, patient reports h/o of PCN allergy that is "fast heart rate". Patient agreeable with plan. Awaiting bed assignment to proceed with ALS ground transfer to [facility]. Medication Reconcilliation Current Medication List: was personally reviewed by me Consults Time Called: 1829 Consulting Physician: Dr. Plata ([facility] surgery) Returned Call: [phone] Accepted for transfer. Impression Primary Impression: Hepatic abscess Critical Care I have personally spent greater than 90 minutes of critical care time in the direct management of this patient. This includes bedside care, interpretation of diagnostic studies, and testing, discussion with consultants, patient, and family members, and other required patient management activities. This 90 minutes is in excess of all separately billable procedures. Scribe Attestation The scribe's documentation has been prepared under my direction and personally reviewed by me in its entirety. I confirm that the note above accurately reflects all work, treatment, procedures, and medical decision making performed by me. Departure Information Referrals Hussein Yen M.D. (PCP) Forms HOME CARE DOCUMENTATION FORM, IMPORTANT VISIT INFORMATION, WORK / SCHOOL INSTRUCTIONS
[2017-11-16 16:15] VITALS: TEMP 37; Ht 180.3 cm; Wt 99.7 kg
[2017-11-16] MEDS ORDERED: OPTIRAY 320 IV PRN (16:15)
[2017-11-16] MEDS ORDERED: LSN20 PO (16:23)
[2017-11-16] MEDS ORDERED: RXC/5 PO (16:23)
--- NOTE | 2017-11-16 16:32 | DIAGNOSTIC IMAGING REPORT ---
CHEST ONE VIEW PORTABLE CLINICAL HISTORY: Abdominal pain and vomiting. COMPARISON STUDY: Chest radiograph September 26, 2017. FINDINGS: Lung volumes are normal. No pneumothorax or pleural effusion is noted. There is no evidence of pleural edema. No consolidation to suggest pneumonia. Cardiomediastinal silhouette is normal. IMPRESSION: No acute cardiopulmonary findings. Electronically signed by: Ryan Bello M.D. 11/16/2017 4:31 PM Dictated Date/Time: 11/16/2017 4:30 PM
[2017-11-16 17:02] LABS: BASO % 0.3 %; BASO ABS # 0.03 K/uL (0-0.2); HEMATOCRIT 42.4 % (42-52); IG# 0.03 K/uL (0.00-0.02); LYMPH % 3.8 %; MEAN CELL VOLUME 91.6 fL (80-100); MEAN CORPUSCULAR HEMOGLOBIN 32.4 pg (25-34); MEAN CORPUSCULAR HGB CONC 35.4 g/dl (32-36); MEAN PLATELET VOLUME 9.3 fL (7.4-10.4); MONO % 5.7 %; NEUT % 89.9 %; NEUT ABS # 9.41 K/uL (1.4-6.5); PLATELET COUNT 318 K/uL (130-400); RED CELL DISTRIBUTION WIDTH CV 13.2 % (11.5-14.5); RED CELL DISTRIBUTION WIDTH SD 44.2 fL (36.4-46.3); WHITE BLOOD COUNT 10.47 K/uL (4.8-10.8)
[2017-11-16 17:11] LABS: ALBUMIN 3.9 gm/dl (3.4-5.0); CALCIUM 9.2 mg/dl (8.5-10.1); CREATININE 0.89 mg/dl (0.60-1.40); POTASSIUM 3.9 mmol/L (3.5-5.1)
[2017-11-16 17:14] LABS: TOTAL PROTEIN 7.8 gm/dl (6.4-8.2)
[2017-11-16 17:39] LABS: INFLUENZA B ANTIGEN Neg for Influ B (NEG)
--- NOTE | 2017-11-16 18:00 | DIAGNOSTIC IMAGING REPORT ---
CT ABD/PELVIS IV CONTRAST ONLY CLINICAL HISTORY: Right lower quadrant pain. History of recent hepatic resection. COMPARISON STUDY: MRI the liver dated 08/20/2017, CT scan of the abdomen pelvis dated 01/05/2017 TECHNIQUE: Following the IV administration of 116 mL of Optiray-320, CT scan of the abdomen and pelvis was performed from the lung bases to the proximal femurs. Images are reviewed in the axial, sagittal, and coronal planes. IV contrast was administered without complication. A dose lowering technique was utilized adhering to the principles of ALARA. CT DOSE: There are mild linear atelectatic changes. FINDINGS: Lower chest: The heart is normal in size and configuration, without pericardial effusion. The lung bases and pleural spaces are clear. Liver: There is been interval resection of the right lobe cystic hepatic lesion. There are multiple radiopaque densities within the right hepatic lobe, likely representing suture material. There are complex fluid collections within the periphery of the measuring 8 x 6 x 2 cm. These could represent a postsurgical hematoma or abscess. There is trace perihepatic fluid. Right hepatic lobe Gallbladder: Surgically absent Spleen: Normal in size and attenuation. Pancreas: Unremarkable. Adrenal glands: Unremarkable. Kidneys: There is symmetric renal cortical enhancement. The kidneys are normal in size without hydronephrosis. Bowel: There are no transition zones indicate bowel obstruction. There is colonic diverticulosis. There are no acute peridiverticular inflammatory changes. The appendix is difficult to visualize. There are no findings to indicate acute appendicitis. There is borderline rectal wall thickening. Peritoneum: No free air is visualized. There is trace perihepatic fluid. Vasculature: The abdominal aorta is normal in course and caliber. Adenopathy: None. Pelvic viscera: The bladder, and pelvic viscera are unremarkable. Skeletal structures: No destructive osseous lesions are seen. IMPRESSION: 1. Interval resection of the right lobe hepatic mass 2. Postsurgical changes involving the right hepatic lobe with a peripheral right lobe complex collection measuring 8 x 6 x 2 cm. This abuts the capsule. Likely diagnostic considerations include postsurgical hematoma versus abscess. 3. No evidence of bowel obstruction. No evidence of free air 4. Diverticulosis. No evidence of acute diverticulitis. No evidence of acute appendicitis. 5. Nonspecific borderline rectal wall thickening Electronically signed by: Richard Chávez M.D. 11/16/2017 5:59 PM Dictated Date/Time: 11/16/2017 5:49 PM
[2017-11-16 18:15] LABS: INFLUENZA A PCR Neg for Influ A (NEG); INFLUENZA B PCR Neg for Influ B (NEG)
[2017-11-16] MEDS ORDERED: PIPERACILLIN/TAZOBACTAM 4.5 GM/100ML D5W IV STA (18:18)
[2017-11-16] MEDS ORDERED: VANCOMYCIN INJ 2,000 MG in SODIUM CHLORIDE 0.9% 500ML 500 ML IV STA (18:18)
[2017-11-16] MEDS ORDERED: METRONIDAZOLE 500MG / 100ML NSS IV STA (18:57)
[2017-11-16] MEDS ORDERED: CEFEPIME IV 2,000 MG in DEXTROSE 5% 100ML 100 ML IV STA (18:57)
[2017-11-16] MEDS ORDERED: ONDANSETRON INJ 2 MG/ML 2 ML VIAL ONE (20:34)
[2017-11-16] MEDS ORDERED: FENTANYL CITRATE INJ 50 MCG/1 ML 2 ML VIAL ONE (23:22)
[2017-11-16 23:34] VITALS: BP 106/60; PULSE 80; O2SAT 98
== END 2017-11-16 23:34 | disposition short-term general hospital (02) ==
LOC: EDBD 15:55 → C.EDC 15:56
DX: K75.0 Abscess of liver (principal); Z90.89 Acquired absence of other organs; Z98.890 Other specified postprocedural states

== ENCOUNTER → 2017-12-27 | Outpatient (CLI) | payer OTHER, MEDICARE ==
[~2017-12-27] MED LIST changes: -CIPR-255 PO; -CIPR1TAB11 PO; +LSN20 PO; +RXC/5 PO
[2017-12-27 12:54] LABS: BLOOD UREA NITROGEN 15 mg/dl (7-18); CREATININE 0.73 mg/dl (0.60-1.40)
== END | disposition home or self-care (01) ==
LOC: C.LAB 10:29
PROVIDERS: ATTEND Specialist
DX: D3A.8 Other benign neuroendocrine tumors (principal)

== ENCOUNTER → 2018-03-08 | Outpatient (CLI) | payer OTHER, MEDICARE ==
[~2018-03-08] MED LIST changes: +IBUP-1050 PO; +LIDO5CRE13 TD; +MULT-1027 PO; +SILD1TAB19 PO
[2018-03-08 14:10] LABS: BLOOD UREA NITROGEN 15 mg/dl (7-18); CREATININE 0.86 mg/dl (0.60-1.40)
== END | disposition home or self-care (01) ==
LOC: C.LAB 11:56
PROVIDERS: ATTEND Specialist
DX: D3A.8 Other benign neuroendocrine tumors (principal)

== ENCOUNTER → 2018-03-18 | Day surgery (SDC) | payer OTHER, MEDICARE ==
[2018-03-08 12:33] VITALS: Ht 180.3 cm; Wt 100.0 kg
[~2018-03-18] VITALS: Ht 180.3 cm; Wt 100.0 kg
[~2018-03-18] MED LIST changes: +LIDOCAINE HCL 2% 2 ML VIAL (20MG/ML) ONE; -LSN20 PO; +PROPOFOL IV EMULSION 10 MG/ML 20 ML VIAL ONE; -RXC/5 PO
--- NOTE | 2018-03-18 11:23 | Endo History and Physical ---
History & Physical Date of Service: March 18, 2018. Chief Complaint: screening,history of malignant neuroendocrine tumor(liver) Referring Physician: Dr. Jerry Nelson,copy to Dr. Dontrell Zamarripa,[facility] History of Present Illness 57 yo CM who presents for colonoscopy secondary to history of malignant neuroendocrine tumor of liver. Past Medical History Arthritis, Hypertension Past Surgical History Hx Cardiac Surgery: No Hx Internal Defibrillator: No Hx Pacemaker: No Hx Abdominal Surgery: Yes (BRAN 10/17/17) Hx Post-Op Nausea and Vomiting: No Hx Cancer Surgery: Yes (NEUROENDOCRINE TUMOR REMOVED 10/17/17, ABSCESS REMOVED ON LIVER) Hx Thoracic Surgery: No Hx Orthopedic: Yes (RT FOOT SURGERY X3 WITH HARDWARE) Hx Urinary Tract Surgery: No Family History Colon CA, Polyp, IBD Social History Smoking Status: Former Smoker Hx Substance Use: No Hx Alcohol Use: Yes (OCCASIONAL) Allergies Coded Allergies: Penicillins (Verified Adverse Reaction, Mild, IRREGULAR HEARTBEAT, 03/08/18 ) Current Medications Reported Home Medications Medications Dose Route/Sig Max Daily Dose Days Date Category Sildenafil Citrate (Sildenafil Citrate (Pulmonary) 20 Mg Tab 3-5 Tabs PO DIRECTED PRN 03/08/18 Reported Multi Vitamin (Multiple Vitamin) 1 Tab Tab 1 Tab PO DAILY 03/08/18 Reported Lidocaine 5% (Lidocaine (Anorectal)) 5 % Cre 1 Patch TD DAILY 03/08/18 Reported Advil (Ibuprofen) 200 Mg Tab 400 Mg PO Q6 03/08/18 Reported Vital Signs Weight (Kilograms): 100 Height (Feet): 5 Height (Inches): 11 Date Time Temp Pulse Resp B/P (MAP) Pulse Ox O2 Delivery O2 Flow Rate FiO2 03/18/18 11:11 36.5 59 16 143/92 (109) 95 Room Air Physical Exam General Appearance: WD/WN, no apparent distress Respiratory/Chest: Auscultation: breath sounds normal Cardiovascular: Heart Auscultation: RRR Abdomen: Bowel Sounds: normal Inspection & Palpation: soft, non-distended, no tenderness, guarding & rebound Assessment and Plan Assessment: 57 yo CM who presents for colonoscopy secondary to history of malignant neuroendocrine tumor of liver. Plan: Proceed with colonoscopy.
--- NOTE | 2018-03-18 11:47 | Discharge Instructions ---
Endoscopy Patient Instructions Date / Procedure(s) Performed March 18, 2018. Colonoscopy Allergy Information Coded Allergies: Penicillins (Verified Adverse Reaction, Mild, IRREGULAR HEARTBEAT, 03/08/18 ) Discharge Date / Findings March 18, 2018. Colon polyp Internal hemorrhoids Medication Instructions OK to resume all medications today as prescribed Reported Home Medications Medications Dose Route/Sig Max Daily Dose Days Date Category Sildenafil Citrate (Sildenafil Citrate (Pulmonary) 20 Mg Tab 3-5 Tabs PO DIRECTED PRN 03/08/18 Reported Multi Vitamin (Multiple Vitamin) 1 Tab Tab 1 Tab PO DAILY 03/08/18 Reported Lidocaine 5% (Lidocaine (Anorectal)) 5 % Cre 1 Patch TD DAILY 03/08/18 Reported Advil (Ibuprofen) 200 Mg Tab 400 Mg PO Q6 03/08/18 Reported Provider Instructions Activity Restrictions - No exercising or heavy lifting for 24 hours. - Do not drink alcohol the day of the procedure. - Do not drive a car or operate machinery until the day after the procedure. - Do not make any important decisions or sign important papers in 24 hours after the procedure. Following Day: - Return to full activity which may include returning to work/school. Diet Start your diet with liquids and light foods (jello, soup, juice, toast). Then eat your usual diet if not nauseated. Treatment For Common After Affects For mild abdominal pain, bloating, or excessive gas: - Rest - Eat lightly - Lie on right side Follow-Up Information Follow-up with Dr. Jerry Nelson,copy to Dr. Dontrell Zamarripa,[facility] as scheduled Anesthesia Information What You Should Know You have had a procedure that required some medicine to reduce anxiety and discomfort. This treatment is called moderate sedation. After receiving the treatment, you may be sleepy, but you will be able to breathe on your own. The effects of the treatment may last for several hours. Follow these instructions along with Activity/Diet recommendations noted above: * Do NOT do anything where dizziness or clumsiness would be dangerous. * Rest quietly at home today, then you can be up and about tomorrow. * Have a responsible person stay with you the rest of today. * You may have had an I.V. today. If so, you may take the dressing off later today. Recommendations Call your doctor if: * Trouble breathing * Continuous vomiting for more than 24 hours * Temperature above 101 degrees * Severe abdominal pain or bloating * Pain not relieved by pain medicine ordered * There is increased drainage or redness from any incision * A large amount of rectal bleeding greater than 2-3 tablespoons. (If you had a polyp/s removed or have hemorrhoids, a small amount of blood - from the rectum is to be expected.) * You have any unanswered questions or concerns. IN THE EVENT OF A SERIOUS EMERGENCY, GO TO THE NEAREST EMERGENCY ROOM Your discharge instructions were prepared by provider Everardo Jacobs. Patient Instructions Signature Page Kd Lockwood Patient (or Guardian) Signature/Date: I have read and understand the instructions given to me by my caregivers. Caregiver/RN/Doctor Signature/Date: The above-named patient and/or guardian has received patient instructions on this date. + Original Patient Signature Page (only) stays with chart. Please make copy for patient.
--- NOTE | 2018-03-18 12:19 | Anesthesiology Progress Note ---
Anesthesia Post Op Note Date & Time March 18, 2018 at 12:18 Vital Signs Pain Intensity: 4 Vital Signs Past 12 Hours Date Time Temp Pulse Resp B/P (MAP) Pulse Ox O2 Delivery O2 Flow Rate FiO2 03/18/18 12:07 45 16 131/83 (99) 98 Room Air 03/18/18 11:52 73 12 130/68 (88) 97 Room Air 03/18/18 11:11 36.5 59 16 143/92 (109) 95 Room Air Notes Mental Status: alert / awake / arousable, participated in evaluation Pt Amnestic to Procedure: Yes Nausea / Vomiting: adequately controlled Pain: adequately controlled Airway Patency, RR, SpO2: stable & adequate BP & HR: stable & adequate Hydration State: stable & adequate Anesthetic Complications: no major complications apparent
[2018-03-18 12:22] VITALS: BP 139/91; PULSE 44; O2SAT 98
--- NOTE | 2018-03-18 15:46 | GI REPORT ---
Patient Name: Kd Lockwood Procedure Date: 03/18/2018 11:37 AM Date of : 1960 Admit Type: Outpatient Age: 57 Gender: Male Attending MD: Everardo Jacobs DO Procedure: Colonoscopy Providers: Everardo Jacobs DO Referring MD: Jerry Nelson Indications: Neuorendocrine tumor of the liver Medicines: Monitored Anesthesia Care Complications: No immediate complications. Estimated Blood Loss: Estimated blood loss: none. Procedure: Pre-Anesthesia Assessment: - Prior to the procedure, a History and Physical was performed, and patient medications and allergies were reviewed. The patient's tolerance of previous anesthesia was also reviewed. The risks and benefits of the procedure and the sedation options and risks were discussed with the patient. All questions were answered, and informed consent was obtained. Prior Anticoagulants: The patient has taken no previous anticoagulant or antiplatelet agents. ASA Grade Assessment: II - A patient with mild systemic disease. After reviewing the risks and benefits, the patient was deemed in satisfactory condition to undergo the procedure. After I obtained informed consent, the scope was passed under direct vision. Throughout the procedure, the patient's blood pressure, pulse, and oxygen saturations were monitored continuously. The scope was introduced through the anus and advanced to 15 cm into the ileum. The colonoscopy was performed without difficulty. The patient tolerated the procedure well. The quality of the bowel preparation was good. The terminal ileum, ileocecal valve, appendiceal orifice, and rectum were photographed. Findings: The perianal and digital rectal examinations were normal. A 4 mm polyp was found in the descending colon. The polyp was sessile. The polyp was removed with a cold snare. Resection and retrieval were complete. Non-bleeding internal hemorrhoids were found during retroflexion. The hemorrhoids were small. Impression: - One 4 mm polyp in the descending colon, removed with a cold snare. Resected and retrieved. - Non-bleeding internal hemorrhoids. Recommendation: - Resume previous diet. - Continue present medications. - Repeat colonoscopy for surveillance based on pathology results. - Return to primary care physician as previously scheduled. Everardo Jacobs DO 03/18/2018 11:53:59 AM This report has been signed electronically. Note Initiated On: 03/18/2018 11:37 AM Number of Addenda: 0 I attest to the content of the Intraoperative Record and orders documented therein, exceptions below {[id number]}
== END | disposition home or self-care (01) ==
LOC: C.GI 10:46
PROVIDERS: ATTEND Internal Medicine
DX: Z12.11 Encounter for screening for malignant neoplasm of colon (principal); D12.4 Benign neoplasm of descending colon; K64.8 Other hemorrhoids; Z85.05 Personal history of malignant neoplasm of liver; M19.90 Unspecified osteoarthritis, unspecified site; I10 Essential (primary) hypertension; Z90.49 Acquired absence of other specified parts of digestive tract; Z80.0 Family history of malignant neoplasm of digestive organs; Z87.891 Personal history of nicotine dependence; Z88.0 Allergy status to penicillin

== ENCOUNTER → 2018-03-19 | Outpatient (CLI) | payer OTHER, MEDICARE ==
[~2018-03-19] MED LIST changes: +GADOXETATE DISODIUM (NON-WT BASED PROCEDURE) IV PRN; -LIDOCAINE HCL 2% 2 ML VIAL (20MG/ML) ONE; -PROPOFOL IV EMULSION 10 MG/ML 20 ML VIAL ONE
--- NOTE | 2018-03-19 12:46 | DIAGNOSTIC IMAGING REPORT ---
LIVER COMBO HISTORY: 57 years-old Male LIVER TUMOR,HEP A history of hepatitis A and prior partially cystic and solid mass of the inferior right hepatic lobe which has been resected. Follow-up study to assess for residual tumor. COMPARISON: CT of the abdomen and pelvis 11/16/2017, liver MRI 08/20/2017 TECHNIQUE: Multiplanar multisequence MRI of the liver was obtained both with and without the use of 10 mL Eovist FINDINGS: Localizer images demonstrate mild nonspecific bilateral perinephric stranding. IVC is unremarkable. The portal vein also appears to be within normal limits. No aortic aneurysm or adenopathy identified. No bowel obstruction. Imaged lung bases and inferior cardiac chambers appear unremarkable. The spleen, pancreas and adrenal glands are within normal limits. Gallbladder is surgically absent. Trace intraperitoneal free fluid of the abdominal right upper quadrant tracks along the duodenum. No drop of signal on the out of phase images to suggest hepatic steatosis. Multiple areas of micrometallic artifact are noted adjacent to the inferior right hepatic lobe at the area of prior hepatic resection correlating with the radiopaque foci seen on comparison CT. There is resolution of the previously noted focal fluid collection at the area of surgical resection. No intrahepatic mass lesions or retention of Eovist identified to suggest recurrent or residual disease. 3-D MRCP images are mildly motion degraded. Common bile duct measures 5 mm. No intrahepatic biliary ductal dilation or biliary filling defects identified. Postsurgical changes of the abdominal wall. Central canal and imaged spine appear unremarkable. IMPRESSION: 1. Postoperative changes of resection of the mixed cystic and solid lesion of the inferior right hepatic lobe. No evidence of residual, recurrent or metastatic disease. 2. Resolution of the previously described focal fluid collection of the right upper quadrant adjacent to the resection site. There is however trace intraperitoneal free fluid within the abdominal right upper quadrant. If there is clinical concern for possible postoperative bile leak, hepatobiliary scan may be considered. 3. No pathologic adenopathy. The above report was generated using voice recognition software. It may contain grammatical, syntax or spelling errors. Electronically signed by: Philipp Beltran M.D. 03/19/2018 12:45 PM Dictated Date/Time: 03/19/2018 12:12 PM
== END | disposition home or self-care (01) ==
LOC: C.MRI 10:09
PROVIDERS: ATTEND Specialist
DX: D3A.8 Other benign neuroendocrine tumors (principal); B15.9 Hepatitis A without hepatic coma

== ENCOUNTER → 2018-07-02 | Outpatient (CLI) | payer OTHER, MEDICARE ==
--- NOTE | 2018-07-02 19:03 | DIAGNOSTIC IMAGING REPORT ---
MRI OF THE ABDOMEN COMBO CLINICAL HISTORY: Neuroendocrine tumor. COMPARISON STUDY: Abdominal MRI dated 03/19/2018. Abdominal CT dated 11/16/2017. TECHNIQUE: MRI of the abdomen is performed transverse T1 and T2-weighted sequences in the axial and coronal planes. Contrast enhanced sequences were acquired following the IV administration of 10 cc of view of Eovist. MRCP images were acquired. Subtraction imaging and diffusion-weighted imaging were utilized. FINDINGS: Lower chest: No pleural effusion is identified. The heart is normal in size. Liver: The liver is normal in size, contour, and signal intensity. Again seen are postoperative changes from right hepatic lobe resection. There is no evidence of recurrent hepatic lesion on today's examination. No intrahepatic biliary ductal dilatation is seen. The hepatic veins and portal veins are patent. Gallbladder an MRCP: The gallbladder is surgically absent. The common bile duct is normal in caliber measuring up to 4 mm. There is no evidence of choledocholithiasis. Spleen: Normal in size and signal intensity. Pancreas: Pancreas is normal as visualized. The pancreatic duct is normal in appearance. Adrenal glands: Unremarkable. Kidneys: The kidneys are normal in size and without hydronephrosis. The kidneys enhance and excrete symmetrically. Abdominal aorta: Normal in course and caliber. Bowel: Visualized portions of the small bowel and colon show no evidence of obstruction. Peritoneum: There is no abdominal ascites. Lymphadenopathy: None. Skeletal structures: Visualized skeletal structures times are normal marrow signal intensity. IMPRESSION: 1. There is no evidence of recurrent or residual hepatic metastatic disease. 2. Again seen are postoperative changes from right lobe hepatic resection and cholecystectomy. 3. No pathologic adenopathy is identified in the upper abdomen. Electronically signed by: Anthony Lemus M.D. 07/02/2018 7:01 PM Dictated Date/Time: 07/02/2018 6:52 PM
== END | disposition home or self-care (01) ==
LOC: C.MRI 16:45
PROVIDERS: ATTEND Specialist
DX: D3A.8 Other benign neuroendocrine tumors (principal); B15.9 Hepatitis A without hepatic coma; Z88.0 Allergy status to penicillin